=== PATIENT | female | born 1945 | race Caucasian/White ===

== ENCOUNTER 2018-08-10 14:32 | Emergency (ER) | payer MEDICARE ==
[2018-08-10] MEDS ORDERED: SODIUM CHLORIDE 0.9% 1,000 ML IV STA (14:47)
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
[2018-08-10 15:01] VITALS: TEMP 97.9
[2018-08-10 15:13] LABS: Basophils # (A) 0.1 k/uL (0-0.2); Basophils % (A) 1 %; Eosinophils # (A) 0.1 k/uL (0-0.7); Eosinophils % (A) 1 %; HGB 12.7 gm/dL (11.4-16.0); Lymphocytes # (A) 2.3 k/uL (1.0-4.8); Lymphocytes % (A) 34 %; MCHC 32.7 g/dL (31.0-37.0); Mean Platelet Volume 7.9; Monocytes # (A) 0.4 k/uL (0-1.0); Monocytes % (A) 6 %; Neutrophils # (A) 3.8 k/uL (1.3-7.7); Neutrophils % (A) 56 %; Platelet Count 235 k/uL (150-450); RDW 12.8 % (11.5-15.5); WBC 6.8 k/uL (3.8-10.6)
[2018-08-10 15:25] LABS: Albumin 3.8 g/dL (3.5-5.0); Calcium 9.7 mg/dL (8.4-10.2); Magnesium 2.3 mg/dL (1.6-2.3); Potassium 4.1 mmol/L (3.5-5.1); Total Bilirubin 0.6 mg/dL (0.2-1.3); Total Protein 6.3 g/dL (6.3-8.2)
[2018-08-10 15:32] LABS: INR 0.9 (<1.2); Prothrombin Time 10.1 sec (9.0-12.0)
[2018-08-10 15:42] LABS: Partial Thromboplastin Time 21.4 sec (22.0-30.0)
--- NOTE | 2018-08-10 15:52 | XR ---
EXAMINATION TYPE: XR chest 2V DATE OF EXAM: 08/10/2018 COMPARISON: 01/01/2014 HISTORY: 73-year-old female with chest pain TECHNIQUE: PA and lateral views FINDINGS: The cardiomediastinal silhouette, aorta, and pulmonary vasculature are within normal limits. There is hyperinflation which could relate to depth of inspiration. Lungs and pleural spaces are clear. Left anterior chest wall ICD generator with right atrial, right ventricular, and coronary sinus leads. Sub tle linear edge seen along the left apex. IMPRESSION: 1. Subtle linear edge seen at the left apex may be projectional. Consider PA expiratory view to [facility] er evaluate and exclude pneumothorax. Findings called to Dr. Sifuentes in the ER at 3:49 PM. 2. Hyperinfla tion could relate to a depth of inspiration or underlying emphysema. No acute process otherwise seen.
--- NOTE | 2018-08-10 17:47 | XR ---
EXAMINATION TYPE: XR chest 1V DATE OF EXAM: 08/10/2018 COMPARISON: Today HISTORY: Possible pneumothorax TECHNIQUE: Single frontal view of the chest is obtained. FINDINGS: Expiration view of the chest shows no sign of a pneumothorax. Lungs are clear of consolida tion. There is minimal scarring at the lung apices. There is no pleural effusion. There is no heart f ailure. IMPRESSION: No pneumothorax seen.
[2018-08-10 18:25] VITALS: BP 132/67; PULSE 63; RESP 18
== END 2018-08-10 18:33 | disposition home or self-care (01) ==
LOC: EC 14:32
DX: R55 Syncope and collapse (principal); R42 Dizziness and giddiness; M06.9 Rheumatoid arthritis, unspecified; I10 Essential (primary) hypertension; Z88.5 Allergy status to narcotic agent; Z79.899 Other long term (current) drug therapy; Z87.891 Personal history of nicotine dependence; Z96.641 Presence of right artificial hip joint; Z95.818 Presence of other cardiac implants and grafts
CPT/HCPCS: 36415; 71045; 71046; 80053; 83735; 84484; 85025; 85610; 85730; 93005; 96360; 99284

== ENCOUNTER → 2018-09-21 | Outpatient (CLI) | payer MEDICARE ==
[2018-09-21 23:36] LABS: Anion Gap 7.6 mmol/L (4.00-12.00); Calcium 9.4 mg/dL (8.7-10.3); Carbon Dioxide 28.4 mmol/L (21.6-31.8); Magnesium 2.2 mg/dL (1.5-2.4); Potassium 3.8 mmol/L (3.5-5.5)
== END | disposition home or self-care (01) ==
LOC: LABWHC1 14:30
PROVIDERS: ATTEND Internal Medicine Cardiovascular Disease
DX: I49.3 Ventricular premature depolarization (principal); I47.1 Supraventricular tachycardia
CPT/HCPCS: 36415; 80048; 83735

== ENCOUNTER → 2018-09-29 | Outpatient (CLI) | payer MEDICARE ==
--- NOTE | 2018-09-29 12:34 | BD ---
EXAMINATION TYPE: Axial Bone Density DATE OF EXAM: 09/29/2018 COMPARISON: NONE CLINICAL HISTORY: Height: 5 FT 7 IN Weight: 168 FRAX RISK QUESTIONS: Secondary Osteoporosis: Rheumatoid Arthritis: YES RISK FACTORS HISTORY OF: Surgery to Spine/Hip(right/left)/Wrist (right/left): RT HIP REPLACEMENT When: 2017 Family History of Osteoporosis: YES Active: YES Postmenopausal woman: AGE 55 Poor Health: HEART ISSUES MEDICATIONS: Additional Medications: ENTRESTO, METOPROLOL, VITAMINS, Additional History: EXAM MEASUREMENTS: Bone mineral densitometry was performed using the [employer] System. Bone mineral density as measured about the Lumbar spine is: ----- L1-L4(G/cm2): 1.101 T Score Values are as follows: ----- L2: -1.2 ----- L3: -0.3 ----- L4: -0.4 ----- L1-L4: -0.7 PREV DONE [facility] Bone mineral density about the L hip (g/cm2): 0.746 T Score values are as follows: -----L Neck: -2.1 -----L Total: -1.8 PREV DONE AT [facility] IMPRESSION: Osteopenia NOTE: T-SCORE=SD OF THE YOUNG ADULT MEAN.
== END ==
LOC: RADBDWWP 11:13
PROVIDERS: ATTEND Internal Medicine
DX: M85.80 Other specified disorders of bone density and structure, unspecified site (principal)
CPT/HCPCS: 77080

== ENCOUNTER 2020-03-23 16:24 | Observation (INO) | payer MEDICARE ==
[2020-03-23 17:24] LABS: Basophils % (A) 1 %; Eosinophils # (A) 0.1 k/uL (0-0.7); Eosinophils % (A) 1 %; HCT 41.8 % (34.0-46.0); HGB 13.5 gm/dL (11.4-16.0); Lymphocytes # (A) 1.5 k/uL (1.0-4.8); Lymphocytes % (A) 27 %; MCH 29.4 pg (25.0-35.0); MCHC 32.2 g/dL (31.0-37.0); MCV 91.3 fL (80.0-100.0); Mean Platelet Volume 7.7; Monocytes # (A) 0.4 k/uL (0-1.0); Monocytes % (A) 7 %; Neutrophils # (A) 3.4 k/uL (1.3-7.7); Neutrophils % (A) 62 %; Platelet Count 322 k/uL (150-450); RBC 4.58 m/uL (3.80-5.40); RDW 11.9 % (11.5-15.5); WBC 5.5 k/uL (3.8-10.6)
[2020-03-23 17:32] LABS: Albumin 4.2 g/dL (3.5-5.0); Calcium 9.8 mg/dL (8.4-10.2); Magnesium 2.3 mg/dL (1.6-2.3); Potassium 3.6 mmol/L (3.5-5.1); Total Bilirubin 0.5 mg/dL (0.2-1.3)
[2020-03-23 17:57] LABS: Partial Thromboplastin Time 26.1 sec (22.0-30.0); Prothrombin Time 10.6 sec (9.0-12.0)
--- NOTE | 2020-03-23 18:33 | ED ---
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 She reports that it is over her left chest wall without radiation. It is not reproducible with movement. States it started around 5 AM this morning. It has been intermittent in nature. Denies any provocative factors. Denies any associated shortness of breath. No fevers, chills or cough. Denies history of DVT or PE. Patient is on Xarelto for afib. Denies missing any medications. No lower extremity edema. Denies previous history of coronary disease. No other alleviating, precipitating or modifying factors - Related Data Home Medications Medication Instructions Recorded Confirmed Sacubitril/Valsartan [Entresto 24 1 tab PO DAILY 04/27/17 03/23/20 mg-26 mg Tablet] Rivaroxaban [Xarelto] 20 mg PO W/SUPPER 03/13/19 03/23/20 Sotalol [Betapace] 40 mg PO BID 03/13/19 03/23/20 Allergies Allergy/AdvReac Type Severity Reaction Status Date / Time codeine AdvReac Nausea & Verified 03/23/20 16:35 Vomiting Review of Systems ROS Statement: Those systems with pertinent positive or pertinent negative responses have been documented in the HPI. ROS Other: All systems not noted in ROS Statement are negative. EKG Findings - EKG Comments: EKG Findings:: EKG demonstrates a ventricularly paced rhythm with frequent AV dual case complex is. Of 67. QRS 136. QTC of 515. Pacemaker captures appropriately. No acute ST segment elevation Past Medical History Past Medical History: Blood Disorder, Hypertension, Rheumatoid Arthritis (RA) Additional Past Medical History / Comment(s): DIFF HEARING RT&LT EAR/POLYPS/ Hx. EF =40. 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 IRON DEFICIENCY ANEMIA History of Any Multi-Drug Resistant Organisms: None Reported Past Surgical History: AICD, Joint Replacement, Tonsillectomy, Tubal Ligation Additional Past Surgical History / Comment(s): L KNEE ARTHROSCOPY/COLONOSCOPY, 2017 [employer]. JANUARY 14 2017 TOTAL RT HIP REPLACEMENT Past Anesthesia/Blood Transfusion Reactions: No Reported Reaction Type of Cardiac Device: AICD Device Placement Date:: AUGUST 17 2016 Past Psychological History: No Psychological Hx Reported Smoking Status: Never smoker Past Alcohol Use History: Rare Past Drug Use History: None Reported General Exam General appearance: alert, in no apparent distress Head exam: Present: atraumatic, normocephalic, normal inspection Eye exam: Present: normal appearance, PERRL, EOMI. Absent: scleral icterus, conjunctival injection, periorbital swelling ENT exam: Present: normal exam, mucous membranes moist Neck exam: Present: normal inspection. Absent: tenderness, meningismus, lymphadenopathy Respiratory exam: Present: normal lung sounds bilaterally. Absent: respiratory distress, wheezes, rales, rhonchi, stridor Cardiovascular Exam: Present: regular rate, normal rhythm, normal heart sounds. Absent: systolic murmur, diastolic murmur, rubs, gallop, clicks GI/Abdominal exam: Present: soft, normal bowel sounds. Absent: distended, tenderness, guarding, rebound, rigid Extremities exam: Present: normal inspection, full ROM, normal capillary refill. Absent: tenderness, pedal edema, joint swelling, calf tenderness Back exam: Present: normal inspection Neurological exam: Present: alert, oriented X3, CN II-XII intact Psychiatric exam: Present: normal affect, normal mood Skin exam: Present: warm, dry, intact, normal color. Absent: rash Course Vital Signs 03/23/20 03/23/20 16:33 20:09 Temperature 97.8 F 97.9 F Pulse Rate 72 73 Respiratory 18 20 Rate Blood Pressure 157/77 158/86 O2 Sat by Pulse 98 98 Oximetry Chest Pain MDM - MDM Upon arrival patient is placed in room 6. A thorough history and physical exam was performed. Patient is hooked to continue his pulse ox and panel monitor. 12-lead EKG was performed. Laboratory studies were conducted. First troponin is negative. BNP is 883. Chest x-ray demonstrates no acute intrathoracic process. I discussed diagnosis, differential and treatment options. As the patient does have a previous cardiac history did recommend overnight observation or to trend her troponins. Patient agreed. I discussed the case with Dr. Leal except admission. Patient was transferred to the floor in stable condition Disposition Clinical Impression: Chest pain Disposition: ADMITTED IP TO THIS HOSP Condition: Stable Is patient prescribed a controlled substance at d/c from ED?: No Decision to Admit Reason: Admit from EC Decision Date: 03/23/20 Decision Time: 19:35
--- NOTE | 2020-03-23 18:36 | XR ---
EXAMINATION TYPE: XR chest 2V DATE OF EXAM: 03/23/2020 COMPARISON: 08/10/2018 HISTORY: Chest pain TECHNIQUE: FINDINGS: Heart is normal. Lungs are clear of infiltrate. There is left axillary pacemaker. There is no evidence of pleural effusion. There are no hilar masses. Bony thorax is intact. IMPRESSION: No active cardiopulmonary disease. No change.
[2020-03-23] MEDS ORDERED: NALOXONE 0.4 MG/ML 1 ML VIAL IV PRN (19:35)
[2020-03-23] MEDS ORDERED: RIVAROXABAN 20 MG TAB PO SCH (21:30)
[2020-03-23] MEDS: SOTALOL 80 MG TAB PO SCH (21:33)
[2020-03-24 04:57] VITALS: PULSE 60; RESP 16
[2020-03-24 07:50] VITALS: BP 143/68; TEMP 97.9
[2020-03-24 08:32] LABS: Basophils # (A) 0.1 k/uL (0-0.2); Basophils % (A) 1 %; Eosinophils % (A) 1 %; HCT 40.9 % (34.0-46.0); HGB 13.5 gm/dL (11.4-16.0); Lymphocytes # (A) 1.5 k/uL (1.0-4.8); Lymphocytes % (A) 29 %; MCH 30.2 pg (25.0-35.0); MCV 91.7 fL (80.0-100.0); Mean Platelet Volume 7.5; Monocytes # (A) 0.4 k/uL (0-1.0); Monocytes % (A) 9 %; Neutrophils % (A) 59 %; Platelet Count 343 k/uL (150-450); RBC 4.46 m/uL (3.80-5.40); RDW 12.3 % (11.5-15.5); WBC 5.1 k/uL (3.8-10.6)
[2020-03-24 08:39] LABS: Calcium 9.5 mg/dL (8.4-10.2)
[2020-03-24] MEDS ORDERED: SACUBITRIL/VALSARTAN 24 MG-26 MG TABLET PO SCH (09:00)
[2020-03-24] MEDS: SOTALOL 80 MG TAB PO SCH (09:25)
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
--- NOTE | 2020-03-24 09:41 | P.CRDCN ---
History of Present Illness Consult date: 03/24/20 Consult reason: chest pain Chief complaint: Chest pain History of present illness: This is a 74-year-old female with documented history of hypertension, rheumatoid arthritis, persistent atrial fibrillation, nonischemic cardiomyopathy, HOSPITAL INTERNSHIP device, who follows with a brush or broom cutter in the [place] area. No prior documented coronary artery disease. Patient presented to the hospital on this occasion with an unusual feeling underneath her left breast, she states it just felt like a smear across the lower half of her chest underneath her left breast, she denies any overt pain pressure or tightness, no associated symptoms of shortness of breath, diaphoresis, or nausea. Her chest x-ray on presentation here did not show any acute disease, EKG shows a sensed V paced rhythm. Blood pressure 130/70 with a heart rate in the 60s 98% on room air. White blood cell count 5.5, hemoglobin 13.5, platelet count 322. Sodium 139, potassium 3.6, BUN 16, creatinine 0.8. Troponin 0.0123. BNP level 883. At the time of my examination this morning, patient is currently chest pain- free. We did receive an echo from the patient's brush or broom cutter in [place] this morning, it was just done in December of this year and showed an ejection fraction of 40-45%. Past Medical History Past Medical History: Blood Disorder, Hypertension, Rheumatoid Arthritis (RA) Additional Past Medical History / Comment(s): DIFF HEARING RT&LT EAR/POLYPS/ Hx. EF =40. August 18 HOSPITAL INTERNSHIP-D defibrillator at [facility], 2015. IRON DEFICIENCY ANEMIA History of Any Multi-Drug Resistant Organisms: None Reported Past Surgical History: AICD, Joint Replacement, Tonsillectomy, Tubal Ligation Additional Past Surgical History / Comment(s): L KNEE ARTHROSCOPY/COLONOSCOPY, 2017 [employer]. JANUARY 14 2017 TOTAL RT HIP REPLACEMENT Past Anesthesia/Blood Transfusion Reactions: No Reported Reaction Type of Cardiac Device: AICD Device Placement Date:: AUGUST 17 2016 Past Psychological History: No Psychological Hx Reported Smoking Status: Never smoker Past Alcohol Use History: Rare Past Drug Use History: None Reported Medications and Allergies Home Medications Medication Instructions Recorded Confirmed Type Sacubitril/Valsartan [Entresto 24 1 tab PO DAILY 04/27/17 03/23/20 History mg-26 mg Tablet] Rivaroxaban [Xarelto] 20 mg PO W/SUPPER 03/13/19 03/23/20 History Sotalol [Betapace] 40 mg PO BID 03/13/19 03/23/20 History Allergies Allergy/AdvReac Type Severity Reaction Status Date / Time codeine AdvReac Nausea & Verified 03/23/20 16:35 Vomiting Physical Exam Vitals: Vital Signs Temp Pulse Pulse Resp BP BP Pulse Ox 03/24/20 07:48 97.9 F 60 16 143/68 97 03/24/20 04:50 97.6 F 60 16 130/74 98 03/23/20 20:25 98.2 F 68 17 165/83 96 03/23/20 20:09 97.9 F 73 20 158/86 98 03/23/20 16:33 97.8 F 72 18 157/77 98 Intake and Output 03/23/20 03/24/20 03/24/20 22:59 06:59 14:59 Other: Voiding Method Toilet Toilet Toilet # Voids 1 Weight 77.564 kg PHYSICAL EXAMINATION: GENERAL: 74-year-old female in no acute distress at the time of my examination HEENT: Head is atraumatic, normocephalic. Pupils equal, round. Sclera anicteric. Conjunctiva are clear. Mucous membranes of the mouth are moist. Neck is supple. There is no elevated jugular venous pressure. No carotid bruit is heard. HEART EXAMINATION: Or S1 and S2 irregularly irregular CHEST EXAMINATION: Lungs are clear to auscultation and precussion. No chest wall tenderness is noted on palpation or with deep breathing. ABDOMEN: Soft, nontender. Bowel sounds are heard. No organomegaly noted. EXTREMITIES: 2+ peripheral pulses with no evidence of peripheral edema and no calf tenderness noted. NEUROLOGIC patient is awake, alert and oriented 3 . Results 03/24/20 08:09 03/24/20 08:09 Cardiac Enzymes 03/23/20 03/23/20 03/23/20 Range/Units 17:11 17:11 20:49 AST 21 (14-36) U/L Troponin I <0.012 <0.012 (0.000-0.034) ng/mL 03/23/20 Range/Units 23:44 AST (14-36) U/L Troponin I <0.012 (0.000-0.034) ng/mL Coagulation 03/23/20 Range/Units 17:11 PT 10.6 (9.0-12.0) sec APTT 26.1 (22.0-30.0) sec CBC 03/23/20 03/24/20 Range/Units 17:11 08:09 WBC 5.5 5.1 (3.8-10.6) k/uL RBC 4.58 4.46 (3.80-5.40) m/uL Hgb 13.5 13.5 (11.4-16.0) gm/dL Hct 41.8 40.9 (34.0-46.0) % Plt Count 322 343 (150-450) k/uL Comprehensive Metabolic Panel 03/23/20 03/24/20 Range/Units 17:11 08:09 Sodium 139 140 (137-145) mmol/L Potassium 3.6 4.0 (3.5-5.1) mmol/L Chloride 104 104 (98-107) mmol/L Carbon Dioxide 31 H 32 H (22-30) mmol/L BUN 16 15 (7-17) mg/dL Creatinine 0.89 0.85 (0.52-1.04) mg/dL Glucose 138 H 110 H (74-99) mg/dL Calcium 9.8 9.5 (8.4-10.2) mg/dL AST 21 (14-36) U/L ALT 12 (4-34) U/L Alkaline Phosphatase 66 (38-126) U/L Total Protein 7.0 (6.3-8.2) g/dL Albumin 4.2 (3.5-5.0) g/dL Current Medications Generic Name Dose Route Start Last Admin Trade Name Freq PRN Reason Stop Dose Admin Naloxone HCl 0.2 mg 03/23/20 19:35 Naloxone 0.4 Mg/Ml 1 Ml Vial IV Q2M PRN Opioid Reversal Rivaroxaban 20 mg 03/23/20 21:30 03/23/20 21:32 Rivaroxaban 20 Mg Tab PO 20 mg W/SUPPER SHANNAN Administration Sacubitril/Valsartan 1 each 03/24/20 09:00 03/24/20 09:25 Sacubitril/Valsartan 24 Mg-26 Mg Tablet PO 1 each DAILY SHANNAN Administration Sotalol HCl 40 mg 03/23/20 21:30 03/24/20 09:25 Sotalol 80 Mg Tab PO 40 mg BID SHANNAN Administration Intake and Output 03/23/20 03/24/20 03/24/20 22:59 06:59 14:59 Other: Voiding Method Toilet Toilet Toilet # Voids 1 Weight 77.564 kg 03/24/20 08:09 03/24/20 08:09 EKG Interpretations (text) EKG shows an a sensed V paced rhythm with underlying atrial fibrillation Assessment and Plan Plan: Assessment and plan #1 atypical chest discomfort, troponins negative 3. EKG shows a sensed V paced rhythm with underlying atrial fibrillation #2 persistent atrial fibrillation on Xarelto #3 nonischemic cardiomyopathy, most recent echo was performed in December which revealed an ejection fraction of 40-45% #4 hypertension #5 rheumatoid arthritis Plan We will not repeat an echocardiogram with Doppler study as the patient recently had one performed in December, we will put a copy of that in the chart. Chest pain is very atypical in nature. Acute coronary syndrome ruled out. Patient is refusing to have any type of stress testing performed. From our perspective we will recommend her to be discharged home today and follow-up with her brush or broom cutter in [place] later this week. DNP note has been reviewed, I agree with a documented findings and plan of care. Patient was seen and examined.
== END 2020-03-24 10:38 | disposition home or self-care (01) ==
LOC: EC 16:24 → 3NCARDOBS 19:37
PROVIDERS: ADMIT Internal Medicine Geriatric Medicine; ATTEND Internal Medicine Geriatric Medicine
DX: R07.89 Other chest pain (principal); I42.8 Other cardiomyopathies; I48.19 Other persistent atrial fibrillation; I10 Essential (primary) hypertension; M06.9 Rheumatoid arthritis, unspecified; I48.91 Unspecified atrial fibrillation; H91.93 Unspecified hearing loss, bilateral; Z79.01 Long term (current) use of anticoagulants; Z79.899 Other long term (current) drug therapy; Z88.5 Allergy status to narcotic agent; Z86.2 Personal history of diseases of the blood and blood-forming organs and certain disorders involving the immune mechanism; Z87.898 Personal history of other specified conditions; Z95.810 Presence of automatic (implantable) cardiac defibrillator; Z96.641 Presence of right artificial hip joint; Z90.89 Acquired absence of other organs; Z98.890 Other specified postprocedural states; Z98.51 Tubal ligation status; Z80.0 Family history of malignant neoplasm of digestive organs; Z82.49 Family history of ischemic heart disease and other diseases of the circulatory system
CPT/HCPCS: 99285; 36415; 93005; 83880; 80053; 80048; 83690; 83735; 84484; 85025 ×2; 85610; 85730; 71046; G0378 ×2

== ENCOUNTER → 2022-01-20 | Outpatient (CLI) | payer MEDICARE ==
--- NOTE | 2022-01-20 19:17 | BD ---
EXAMINATION TYPE: Axial Bone Density DATE OF EXAM: 01/20/2022 COMPARISON: 09/29/2018 BONE DENSITY IS UNAVAILABLE CLINICAL HISTORY: 76 years year old Female. ICD-10 CODE: M89.9 DISORDER OF BONE Height: 66.2 IN Weight: 146 LBS FRAX RISK QUESTIONS: Family History (Parent hip fracture): YES MOTHER Rheumatoid Arthritis: YES RISK FACTORS HISTORY OF: Surgery to Hip(right): 2018 Family History of Osteoporosis: MOTHER Active: MODERATE Postmenopausal woman: AGE 61 MEDICATIONS: Additional Medications: VIT D, HEART MEDS, ENTRESTO, SOTALOL, XARELTO, EXAM MEASUREMENTS: Bone mineral densitometry was performed using the [employer]. Bone mineral density as measured about the Lumbar spine is: ----- L1-L4(G/cm2): 1.125 T Score Values are as follows: ----- L1: -1.2 ----- L2: -0.7 ----- L3: -0.1 ----- L4: -0.1 ----- L1-L4: -0.5 Bone mineral density STUDY OF 09/29/2018 UNAVAILABLE Bone mineral density about the L hip (g/cm2): 0.690 T Score values are as follows: -----L Neck: -2.5 -----L Total: -2.3 Bone mineral density STUDY OF 09/29/2018 UNAVAILABLE FRAX%s: The graph provided illustrates a 31.9 chance for a major osteoporotic fx and a 21.8 chance fo r the hips probability for fx in 10 years time. IMPRESSION: Osteoporosis (T Score less than -2.5). There is increased fracture risk and therapy is usually indicated based on age. Re-Screen 1-2 years. NOTE: T-SCORE=SD OF THE YOUNG ADULT MEAN.
== END | disposition home or self-care (01) ==
LOC: RADBDWWP 09:18
PROVIDERS: ATTEND Family Medicine
DX: M81.0 Age-related osteoporosis without current pathological fracture (principal)
CPT/HCPCS: 77080

== ENCOUNTER 2023-06-04 14:20 | Emergency (ER) | payer MEDICARE ==
--- NOTE | 2023-06-04 14:28 | ED ---
Female Urogenital HPI - General Chief complaint: Urogenital Stated complaint: UTI Time Seen by Provider: 06/04/23 14:25 Source: patient, RN notes reviewed, old records reviewed Mode of arrival: ambulatory Limitations: no limitations - History of Present Illness Initial comments: This is a 78-year-old female to the emergency department for evaluation. P atient states she's having burning with urination and feels a prior urinary tract infection she is without fever no significant abdominal pain or back pain. No nausea vomiting or diarrhea. No other complaints aside from dysuria MD Complaint: dysuria -: days(s) Location: perineum, suprapubic Radiation: suprapubic Severity: mild Severity scale (1-10): 2 Quality: cramping Consistency: intermittent Improves with: none Worsens with: urination Patient : No Associated Symptoms: dysuria - Related Data Home Medications Medication Instructions Recorded Confirmed Sacubitril/Valsartan [Entresto 24 2 tab PO BID 04/27/17 05/18/23 mg-26 mg Tablet] Rivaroxaban [Xarelto] 20 mg PO W/SUPPER 03/13/19 05/18/23 Sotalol [Betapace] 40 mg PO BID 03/13/19 05/18/23 Previous Rx's Medication Instructions Recorded Nitrofurantoin Monohyd/M-Cryst 100 mg PO Q12HR #14 cap 06/04/23 [Macrobid] Allergies Allergy/AdvReac Type Severity Reaction Status Date / Time codeine AdvReac Nausea & Verified 06/04/23 14:23 Vomiting Review of Systems ROS Statement: Those systems with pertinent positive or pertinent negative responses have been documented in the HPI. ROS Other: All systems not noted in ROS Statement are negative. Past Medical History Past Medical History: Blood Disorder, Hypertension, Rheumatoid Arthritis (RA) Additional Past Medical History / Comment(s): DIFF HEARING RT&LT EAR/POLYPS/ Hx. EF =40. August 18 [employer]-D defibrillator at [facility], 2015. IRON DEFICIENCY ANEMIA History of Any Multi-Drug Resistant Organisms: None Reported Past Surgical History: AICD, Joint Replacement, Pacemaker, Tonsillectomy, Tubal Ligation Additional Past Surgical History / Comment(s): L KNEE ARTHROSCOPY/COLONOSCOPY, 2017 [employer]. JANUARY 14 2017 TOTAL RT HIP REPLACEMENT Past Anesthesia/Blood Transfusion Reactions: No Reported Reaction Type of Cardiac Device: AICD Device Placement Date:: AUGUST 17 2016 Past Psychological History: No Psychological Hx Reported Smoking Status: Never smoker Past Alcohol Use History: None Reported Past Drug Use History: None Reported General Exam Limitations: no limitations General appearance: alert, in no apparent distress Head exam: Present: atraumatic, normocephalic, normal inspection Eye exam: Present: normal appearance, PERRL, EOMI. Absent: scleral icterus, conjunctival injection, periorbital swelling ENT exam: Present: normal exam, mucous membranes moist Neck exam: Present: normal inspection. Absent: tenderness, meningismus, lymphadenopathy Respiratory exam: Present: normal lung sounds bilaterally. Absent: respiratory distress, wheezes, rales, rhonchi, stridor Cardiovascular Exam: Present: regular rate, normal rhythm, normal heart sounds. Absent: systolic murmur, diastolic murmur, rubs, gallop, clicks GI/Abdominal exam: Present: soft, normal bowel sounds. Absent: distended, tenderness, guarding, rebound, rigid Extremities exam: Present: normal inspection, full ROM, normal capillary refill. Absent: tenderness, pedal edema, joint swelling, calf tenderness Back exam: Present: normal inspection Neurological exam: Present: alert, oriented X3, CN II-XII intact Psychiatric exam: Present: normal affect, normal mood Skin exam: Present: warm, dry, intact, normal color. Absent: rash Course Vital Signs 06/04/23 06/04/23 14:21 15:36 Temperature 98.4 F Pulse Rate 76 76 Respiratory 20 18 Rate Blood Pressure 166/83 154/74 O2 Sat by Pulse 96 98 Oximetry - Reevaluation(s) Reevaluation #1: Medical record is reviewed Reevaluation #2: Patient symptoms are improved Reevaluation #3: Patient informed results and questions answered Reevaluation #4: 06/04/23 15:01 Was pt. sent in by a medical professional or institution (, PA, ANCILLARY SPECIALIST, urgent care, hospital, or group home...) When possible be specific @ -no Did you speak to anyone other than the patient for history (EMS, parent, family, police, friend...)? What history was obtained from this source @ -no Did you review nursing and triage notes (agree or disagree)? Why? @ -agree Are old charts reviewed (outside hosp., previous admission, EMS record, old EKG, old radiological studies, urgent care reports/EKG's, group home records)? Report findings @ -yes Differential Diagnosis (chest pain, altered mental status, abdominal pain women, abdominal pain men, vaginal bleeding, weakness, fever, dyspnea, syncope, headache, dizziness, GI bleed, back pain, seizure, CVA, palpatations, mental health, musculoskeletal)? @ -prior EKG interpreted by me (3pts min.). @ -no X-rays interpreted by me (1pt min.). @ -no CT interpreted by me (1pt min.). @ -no U/S interpreted by me (1pt. min.). @ -no What testing was considered but not performed or refused? (CT, X-rays, U/S, labs)? Why? @ -none What meds were considered but not given or refused? Why? @ -none Did you discuss the management of the patient with other professionals (professionals i.e. , PA, ANCILLARY SPECIALIST, lab, RT, psych nurse, social sciences instructor, risk control consultant, teacher, founder and chief technical officer, case managers)? Give summary @ -no Was smoking cessation discussed for >3mins.? @ -no Was critical care preformed (if so, how long)? @ -no Were there social determinants of health that impacted care today? How? (Homelessness, low income, unemployed, alcoholism, drug addiction, transportation, low edu. Level, literacy, decrease access to med. care, nursing home, rehab)? @ -none Was there de-escalation of care discussed even if they declined (Discuss DNR or withdrawal of care, Hospice)? DNR status @ -no What co-morbidities impacted this encounter? (DM, HTN, Smoking, COPD, CAD, Cancer, CVA, ARF, Chemo, Hep., AIDS, mental health diagnosis, sleep apnea, morbid obesity)? @ -none Was patient admitted / discharged? Hospital course, mention meds given and route, prescriptions, significant lab abnormalities, going to OR and other pertinent info. @ - 78 female to the emergency department for evaluation of urinary tract infection patient states symptoms are significantly similar to prior urinary tract infections and she would like discharge home, patient given antibiotics Admitted Undiagnosed new problem with uncertain prognosis? @ -no Drug Therapy requiring intensive monitoring for toxicity (Heparin, Nitro, Insulin, Cardizem)? @ -no Were any procedures done? @ -no Diagnosis/symptom? @ -Urinary tract infection Acute, or Chronic, or Acute on Chronic? @ -Acute Uncomplicated (without systemic symptoms) or Complicated (systemic symptoms)? @ -Complicated Side effects of treatment? @ -no Exacerbation, Progression, or Severe Exacerbation? @ -exacerbation Poses a threat to life or bodily function? How? (Chest pain, [place], [place], pneumonia, PE, COPD, DKA, ARF, appy, cholecystitis, CVA, Diverticulitis, Homicidal, Suicidal, threat to staff... and all critical care pts) @ -no Reevaluation #5: Differential Abdominal Pain Women: Appendicitis, Cholecystitis, diverticulosis, ischemic bowel, pancreatitis, hepatitis, UTI, gastroenteritis, AAA, incarcerated hernia, bowel obstruction, constipation, inflammatory bowel, hepatitis, peptic ulcer disease, splenic infarction, perforated viscus, vulvitis, ovarian torsion, PID, kidney stone, placenta abruption, this is not meant to be an all-inclusive list Medical Decision Making - Medical Decision Making 78 female to the emergency department for evaluation of urinary tract infection patient states symptoms are significantly similar to prior urinary tract infections and she would like discharge home, patient given antibiotics - Lab Data Lab Results 06/04/23 Range/Units 14:37 Urine Color Colorless Urine Appearance Cloudy H (Clear) Urine pH 7.5 (5.0-8.0) Ur Specific Longs 1.014 (1.001-1.035) Urine Protein Negative (Negative) Urine Glucose (UA) Negative (Negative) Urine Ketones Negative (Negative) Urine Blood Trace H (Negative) Urine Nitrite Negative (Negative) Urine Bilirubin Negative (Negative) Urine Urobilinogen <2.0 (<2.0) mg/dL Ur Leukocyte Esterase Large H (Negative) Urine RBC 7 H (0-5) /hpf Urine WBC 90 H (0-5) /hpf Ur Squamous Epith Cells <1 (0-4) /hpf Urine Mucus Rare H (None) /hpf - EKG Data -: EKG Interpreted by Me (EKG is A. fib 62 QRS 129 QTC 436) Disposition Clinical Impression: Urinary tract infection Disposition: HOME SELF-CARE Condition: Good Instructions (If sedation given, give patient instructions): Urinary Tract Infection in Women (ED) Prescriptions: Nitrofurantoin Monohyd/M-Cryst [Macrobid] 100 mg PO Q12HR #14 cap Is patient prescribed a controlled substance at d/c from ED?: No Referrals: Cora Orourke MD [Primary Care Provider] - 1-2 days Time of Disposition: 15:30
[2023-06-04 14:59] VITALS: PULSE 76; TEMP 98.4
[2023-06-04 15:17] LABS: Appearance,Urine Cloudy (Clear); Bilirubin,Urine Negative (Negative); Blood,Urine Trace (Negative); Color,Urine Colorless; Glucose,Urine (UA) Negative (Negative); Ketones,Urine Negative (Negative); Leukocyte Esterase,Urine Large (Negative); Mucus,Urine Rare /hpf; Nitrite,Urine Negative (Negative); PH, Urine 7.5 (5.0-8.0); Protein,Urine Negative (Negative); RBC,Urine 7 /hpf (0-5); Specific Gravity,Urine 1.014 (1.001-1.035); Squamous Epithelial Cell,Urine <1 /hpf (0-4); Urobilinogen,Urine <2.0 mg/dL (<2.0); WBC,Urine 90 /hpf (0-5)
[2023-06-04] MEDS ORDERED: NITROFURANTOIN MONOHYD/M-CRYST 100 MG CAP PO STA (15:26)
[2023-06-04 15:44] VITALS: BP 154/74; RESP 18
== END 2023-06-04 15:37 | disposition home or self-care (01) ==
LOC: EC 14:20
DX: N39.0 Urinary tract infection, site not specified (principal); I50.9 Heart failure, unspecified; I11.0 Hypertensive heart disease with heart failure; I48.91 Unspecified atrial fibrillation; Z88.5 Allergy status to narcotic agent; Z79.01 Long term (current) use of anticoagulants; Z79.899 Other long term (current) drug therapy; Z95.810 Presence of automatic (implantable) cardiac defibrillator
CPT/HCPCS: 81001; 99284

== ENCOUNTER 2024-05-09 12:11 | Inpatient (IN) | payer MEDICARE ==
--- NOTE | 2024-05-09 13:19 | ED ---
Altered Mental Status HPI - General Chief Complaint: Altered Mental Status Stated Complaint: Cardiac issues, possible stroke Time Seen by Provider: 05/09/24 12:28 Source: patient, family Mode of arrival: ambulatory Limitations: altered mental status - History of Present Illness Initial Comments: 78-year-old female with past medical history of rheumatoid arthritis who presents to the emergency department with altered mental status. She is brought in by her under the direction of their daughter who is a doctor. Patient woke up this morning with confusion. Patient is oriented to self, place and time however her speech at most is nonsensical. Patient is having circular responses to questions that do not make sense. Daughter states that this has happened previously to her in the past upon waking up however her symptoms are usually short-lived. This is the worst episode the patient has ever had with her confusion and has lasted the longest. There is no lateralizing weakness. No head injury. Patient does take Xarelto. Patient denies any visual changes. Chest pain or difficulty breathing. No fevers. No other alleviating, precipitating or modifying factors - Related Data Home Medications Medication Instructions Recorded Confirmed Sacubitril/Valsartan [Entresto 24 1 tab PO BID 04/27/17 05/09/24 mg-26 mg Tablet] Rivaroxaban [Xarelto] 20 mg PO W/SUPPER 03/13/19 05/09/24 Sotalol [Betapace] 40 mg PO BID 03/13/19 05/09/24 clonazePAM [KlonoPIN] 0.25 mg PO HS PRN 05/09/24 05/09/24 Allergies Allergy/AdvReac Type Severity Reaction Status Date / Time codeine AdvReac Nausea & Verified 05/09/24 15:11 Vomiting Review of Systems ROS Statement: Those systems with pertinent positive or pertinent negative responses have been documented in the HPI. ROS Other: All systems not noted in ROS Statement are negative. Past Medical History Past Medical History: Blood Disorder, Hypertension, Rheumatoid Arthritis (RA) Additional Past Medical History / Comment(s): DIFF HEARING RT&LT EAR/POLYPS/ Hx. EF =40. August 18 [employer]-D defibrillator at [facility]2015. IRON DEFICIENCY ANEMIA History of Any Multi-Drug Resistant Organisms: None Reported Past Surgical History: AICD, Joint Replacement, Pacemaker, Tonsillectomy, Tubal Ligation Additional Past Surgical History / Comment(s): L KNEE ARTHROSCOPY/COLONOSCOPY, 2017 [place]. JANUARY 14 2017 TOTAL RT HIP REPLACEMENT Past Anesthesia/Blood Transfusion Reactions: No Reported Reaction Type of Cardiac Device: AICD Device Placement Date:: AUGUST 17 2016 Past Psychological History: No Psychological Hx Reported Smoking Status: Never smoker General Exam Limitations: altered mental status Course Vital Signs 05/09/24 12:22 Temperature 97.3 F L Pulse Rate 64 Respiratory 18 Rate Blood Pressure 160/68 O2 Sat by Pulse 98 Oximetry Medical Decision Making - Medical Decision Making Was pt. sent in by a medical professional or institution (, RAMANDEEP, INSPECTOR [employer], urgent care, hospital, or correction...) When possible be specific @ -[No] Did you speak to anyone other than the patient for history (EMS, parent, family, police, friend...)? What history was obtained from this source @ -[No] Did you review nursing and triage notes (agree or disagree)? Why? @ -[I reviewed and agree with nursing and triage notes] Were old charts reviewed (outside hosp., previous admission, EMS record, old EKG, old radiological studies, urgent care reports/EKG's, correction records)? Report findings @ -[No old charts were reviewed] Differential Diagnosis (chest pain, altered mental status, abdominal pain women, abdominal pain men, vaginal bleeding, weakness, fever, dyspnea, syncope, headache, dizziness, GI bleed, back pain, seizure, CVA, palpatations, mental health, musculoskeletal)? @ -[not applicable] EKG interpreted by me (3pts min.). @ -Yes and demonstrates an AV paced rhythm. Captures appropriately. No acute ST segment elevation or depression X-rays interpreted by me (1pt min.). @ -[None done] CT interpreted by me (1pt min.). @ -[None done] U/S interpreted by me (1pt. min.). @ -[None done] What testing was considered but not performed or refused? (CT, X-rays, U/S, labs)? Why? @ -[None] What meds were considered but not given or refused? Why? @ -[None] Did you discuss the management of the patient with other professionals (professionals i.e. , RAMANDEEP, INSPECTOR [employer], lab, RT, psych nurse, adoption social worker, potato chip maker, teacher, postal sorting officer, casework manager)? Give summary @ -[No] Was smoking cessation discussed for >3mins.? @ -[No] Was critical care preformed (if so, how long)? @ -[No] Were there social determinants of health that impacted care today? How? (Homelessness, low income, unemployed, alcoholism, drug addiction, transportation, low edu. Level, literacy, decrease access to med. care, usp, rehab)? @ -[No] Was there de-escalation of care discussed even if they declined (Discuss DNR or withdrawal of care, Hospice)? DNR status @ -[No] What co-morbidities impacted this encounter? (DM, HTN, Smoking, COPD, CAD, Cancer, CVA, ARF, Chemo, Hep., AIDS, mental health diagnosis, sleep apnea, morbid obesity)? @ -[None] Was patient admitted / discharged? Hospital course, mention meds given and route, prescriptions, significant lab abnormalities, going to OR and other perti nent info. @ -[hospital course] Undiagnosed new problem with uncertain prognosis? @ -[No] Drug Therapy requiring intensive monitoring for toxicity (Heparin, Nitro, Insulin, Cardizem)? @ -[No] Were any procedures done? @ -[No] Diagnosis/symptom? @ -[default] Acute, or Chronic, or Acute on Chronic? @ -[default] Uncomplicated (without systemic symptoms) or Complicated (systemic symptoms)? @ -[default] Side effects of treatment? @ -[No] Exacerbation, Progression, or Severe Exacerbation? @ -[No] Poses a threat to life or bodily function? How? (Chest pain, USA, ID, pneumonia, PE, COPD, DKA, ARF, appy, cholecystitis, CVA, Diverticulitis, Homicidal, Suicidal, threat to staff... and all critical care pts) @ -[No] - Lab Data Result diagrams: 05/09/24 13:20 05/09/24 13:20 Lab Results 05/09/24 05/09/24 05/09/24 Range/Units 13:20 13:20 13:20 WBC 6.5 (3.8-10.6) k/uL RBC 4.07 (3.80-5.40) m/uL Hgb 12.7 (11.4-16.0) gm/dL Hct 38.2 (34.0-46.0) % MCV 93.8 (80.0-100.0) fL MCH 31.1 (25.0-35.0) pg MCHC 33.1 (31.0-37.0) g/dL RDW 12.6 (11.5-15.5) % Plt Count 234 (150-450) k/uL MPV 8.5 Neutrophils % 69 % Lymphocytes % 23 % Monocytes % 6 % Eosinophils % 0 % Basophils % 1 % Neutrophils # 4.5 (1.3-7.7) k/uL Lymphocytes # 1.5 (1.0-4.8) k/uL Monocytes # 0.4 (0-1.0) k/uL Eosinophils # 0.0 (0-0.7) k/uL Basophils # 0.0 (0-0.2) k/uL PT 11.3 (10.0-12.5) sec INR 1.0 (<1.2) APTT 25.9 (22.0-30.0) sec Sodium 139 (137-145) mmol/L Potassium 3.8 (3.5-5.1) mmol/L Chloride 103 (98-107) mmol/L Carbon Dioxide 31 H (22-30) mmol/L Anion Gap 5 mmol/L BUN 17 (7-17) mg/dL Creatinine 0.80 (0.52-1.04) mg/dL Est GFR (CKD-EPI)AfAm 82 (>60 ml/min/1.73 sqM) Est GFR (CKD-EPI)NonAf 72 (>60 ml/min/1.73 sqM) Glucose 116 H (74-99) mg/dL Calcium 9.1 (8.4-10.2) mg/dL Total Bilirubin 0.9 (0.2-1.3) mg/dL AST 23 (14-36) U/L ALT 16 (4-34) U/L Alkaline Phosphatase 44 (38-126) U/L Ammonia (<30) umol/L Troponin I (0.000-0.034) ng/mL Total Protein 6.3 (6.3-8.2) g/dL Albumin 3.9 (3.5-5.0) g/dL TSH 2.010 (0.465-4.680) mIU/L Urine Color Urine Appearance (Clear) Urine pH (5.0-8.0) Ur Specific Kinsey (1.001-1.035) Urine Protein (Negative) Urine Glucose (UA) (Negative) Urine Ketones (Negative) Urine Blood (Negative) Urine Nitrite (Negative) Urine Bilirubin (Negative) Urine Urobilinogen (<2.0) mg/dL Ur Leukocyte Esterase (Negative) Urine Opiates Screen (NotDetected) Ur Oxycodone Screen (NotDetected) Urine Methadone Screen (NotDetected) Ur Barbiturates Screen (NotDetected) U Tricyclic Antidepress (NotDetected) Ur Phencyclidine Scrn (NotDetected) Ur Amphetamines Screen (NotDetected) U Methamphetamines Scrn (NotDetected) U Benzodiazepines Scrn (NotDetected) Urine Cocaine Screen (NotDetected) U Marijuana (THC) Screen (NotDetected) Serum Alcohol <10 mg/dL 05/09/24 05/09/24 05/09/24 Range/Units 13:20 13:20 13:47 WBC (3.8-10.6) k/uL RBC (3.80-5.40) m/uL Hgb (11.4-16.0) gm/dL Hct (34.0-46.0) % MCV (80.0-100.0) fL MCH (25.0-35.0) pg MCHC (31.0-37.0) g/dL RDW (11.5-15.5) % Plt Count (150-450) k/uL MPV Neutrophils % % Lymphocytes % % Monocytes % % Eosinophils % % Basophils % % Neutrophils # (1.3-7.7) k/uL Lymphocytes # (1.0-4.8) k/uL Monocytes # (0-1.0) k/uL Eosinophils # (0-0.7) k/uL Basophils # (0-0.2) k/uL PT (10.0-12.5) sec INR (<1.2) APTT (22.0-30.0) sec Sodium (137-145) mmol/L Potassium (3.5-5.1) mmol/L Chloride (98-107) mmol/L Carbon Dioxide (22-30) mmol/L Anion Gap mmol/L BUN (7-17) mg/dL Creatinine (0.52-1.04) mg/dL Est GFR (CKD-EPI)AfAm (>60 ml/min/1.73 sqM) Est GFR (CKD-EPI)NonAf (>60 ml/min/1.73 sqM) Glucose (74-99) mg/dL Calcium (8.4-10.2) mg/dL Total Bilirubin (0.2-1.3) mg/dL AST (14-36) U/L ALT (4-34) U/L Alkaline Phosphatase (38-126) U/L Ammonia <9 (<30) umol/L Troponin I <0.012 (0.000-0.034) ng/mL Total Protein (6.3-8.2) g/dL Albumin (3.5-5.0) g/dL TSH (0.465-4.680) mIU/L Urine Color Urine Appearance (Clear) Urine pH (5.0-8.0) Ur Specific Kinsey (1.001-1.035) Urine Protein (Negative) Urine Glucose (UA) (Negative) Urine Ketones (Negative) Urine Blood (Negative) Urine Nitrite (Negative) Urine Bilirubin (Negative) Urine Urobilinogen (<2.0) mg/dL Ur Leukocyte Esterase (Negative) Urine Opiates Screen Not Detected (NotDetected) Ur Oxycodone Screen Not Detected (NotDetected) Urine Methadone Screen Not Detected (NotDetected) Ur Barbiturates Screen Not Detected (NotDetected) U Tricyclic Antidepress Not Detected (NotDetected) Ur Phencyclidine Scrn Not Detected (NotDetected) Ur Amphetamines Screen Not Detected (NotDetected) U Methamphetamines Scrn Not Detected (NotDetected) U Benzodiazepines Scrn Not Detected (NotDetected) Urine Cocaine Screen Not Detected (NotDetected) U Marijuana (THC) Screen Not Detected (NotDetected) Serum Alcohol mg/dL 05/09/24 Range/Units 13:47 WBC (3.8-10.6) k/uL RBC (3.80-5.40) m/uL Hgb (11.4-16.0) gm/dL Hct (34.0-46.0) % MCV (80.0-100.0) fL MCH (25.0-35.0) pg MCHC (31.0-37.0) g/dL RDW (11.5-15.5) % Plt Count (150-450) k/uL MPV Neutrophils % % Lymphocytes % % Monocytes % % Eosinophils % % Basophils % % Neutrophils # (1.3-7.7) k/uL Lymphocytes # (1.0-4.8) k/uL Monocytes # (0-1.0) k/uL Eosinophils # (0-0.7) k/uL Basophils # (0-0.2) k/uL PT (10.0-12.5) sec INR (<1.2) APTT (22.0-30.0) sec Sodium (137-145) mmol/L Potassium (3.5-5.1) mmol/L Chloride (98-107) mmol/L Carbon Dioxide (22-30) mmol/L Anion Gap mmol/L BUN (7-17) mg/dL Creatinine (0.52-1.04) mg/dL Est GFR (CKD-EPI)AfAm (>60 ml/min/1.73 sqM) Est GFR (CKD-EPI)NonAf (>60 ml/min/1.73 sqM) Glucose (74-99) mg/dL Calcium (8.4-10.2) mg/dL Total Bilirubin (0.2-1.3) mg/dL AST (14-36) U/L ALT (4-34) U/L Alkaline Phosphatase (38-126) U/L Ammonia (<30) umol/L Troponin I (0.000-0.034) ng/mL Total Protein (6.3-8.2) g/dL Albumin (3.5-5.0) g/dL TSH (0.465-4.680) mIU/L Urine Color Colorless Urine Appearance Clear (Clear) Urine pH 7.0 (5.0-8.0) Ur Specific Kinsey 1.008 (1.001-1.035) Urine Protein Negative (Negative) Urine Glucose (UA) Negative (Negative) Urine Ketones Negative (Negative) Urine Blood Negative (Negative) Urine Nitrite Negative (Negative) Urine Bilirubin Negative (Negative) Urine Urobilinogen <2.0 (<2.0) mg/dL Ur Leukocyte Esterase Negative (Negative) Urine Opiates Screen (NotDetected) Ur Oxycodone Screen (NotDetected) Urine Methadone Screen (NotDetected) Ur Barbiturates Screen (NotDetected) U Tricyclic Antidepress (NotDetected) Ur Phencyclidine Scrn (NotDetected) Ur Amphetamines Screen (NotDetected) U Methamphetamines Scrn (NotDetected) U Benzodiazepines Scrn (NotDetected) Urine Cocaine Screen (NotDetected) U Marijuana (THC) Screen (NotDetected) Serum Alcohol mg/dL Disposition Clinical Impression: Acute encephalopathy Disposition: ADMITTED IP TO THIS [facility] Condition: Stable Is patient prescribed a controlled substance at d/c from ED?: No Referrals: Cora Orourke MD [Primary Care Provider] - 1-2 days Time of Disposition: 15:19 Decision to Admit Reason: Admit from EC Decision Date: 05/09/24 Decision Time: 15:19
[2024-05-09 13:34] LABS: Basophils % (A) 1 %; Eosinophils % (A) 0 %; HCT 38.2 % (34.0-46.0); HGB 12.7 gm/dL (11.4-16.0); Lymphocytes # (A) 1.5 k/uL (1.0-4.8); Lymphocytes % (A) 23 %; MCH 31.1 pg (25.0-35.0); MCHC 33.1 g/dL (31.0-37.0); MCV 93.8 fL (80.0-100.0); Mean Platelet Volume 8.5; Monocytes # (A) 0.4 k/uL (0-1.0); Monocytes % (A) 6 %; Neutrophils # (A) 4.5 k/uL (1.3-7.7); Neutrophils % (A) 69 %; Platelet Count 234 k/uL (150-450); RBC 4.07 m/uL (3.80-5.40); RDW 12.6 % (11.5-15.5); WBC 6.5 k/uL (3.8-10.6)
[2024-05-09 13:45] LABS: ALT 16 U/L (4-34); AST 23 U/L (14-36); African American GFR (CKD) 82 (>60 ml/min/1.73 sqM); Albumin 3.9 g/dL (3.5-5.0); Alcohol <10 mg/dL; Alkaline Phosphatase 44 U/L (38-126); Anion Gap 5 mmol/L; Blood Urea Nitrogen 17 mg/dL (7-17); Calcium 9.1 mg/dL (8.4-10.2); Carbon Dioxide 31 mmol/L (22-30); Chloride 103 mmol/L (98-107); Glucose 116 mg/dL (74-99); Non-African American GFR(CKD) 72 (>60 ml/min/1.73 sqM); Potassium 3.8 mmol/L (3.5-5.1); Sodium 139 mmol/L (137-145); Total Bilirubin 0.9 mg/dL (0.2-1.3); Total Protein 6.3 g/dL (6.3-8.2)
[2024-05-09 13:54] LABS: Appearance,Urine Clear (Clear); Bilirubin,Urine Negative (Negative); Blood,Urine Negative (Negative); Color,Urine Colorless; Glucose,Urine (UA) Negative (Negative); Ketones,Urine Negative (Negative); Leukocyte Esterase,Urine Negative (Negative); Nitrite,Urine Negative (Negative); Protein,Urine Negative (Negative); Specific Gravity,Urine 1.008 (1.001-1.035); Urobilinogen,Urine <2.0 mg/dL (<2.0)
[2024-05-09 13:59] LABS: Partial Thromboplastin Time 25.9 sec (22.0-30.0); Prothrombin Time 11.3 sec (10.0-12.5)
[2024-05-09 14:05] LABS: Amphetamine Screen,Urine Not Detected (NotDetected); Barbiturate Screen,Urine Not Detected (NotDetected); Benzodiazepines Screen,Urine Not Detected (NotDetected); Cocaine Screen,Urine Not Detected (NotDetected); Methadone Screen, Urine Not Detected (NotDetected); Opiate Screen,Urine Not Detected (NotDetected); Oxycodone Screen, Urine Not Detected (NotDetected); Phencyclidine Screen,Urine Not Detected (NotDetected); Tricyclic Antidepressant,Urine Not Detected (NotDetected); Urn Cannabinoid Scrn Not Detected (NotDetected)
--- NOTE | 2024-05-09 14:33 | CT ---
EXAMINATION TYPE: CT brain wo con CT DLP: 1068.8 mGycm, Automated exposure control for dose reduction was used. DATE OF EXAM: 05/09/2024 2:24 PM COMPARISON: None. CLINICAL INDICATION:Female, 78 years old with history of ams, ams TECHNIQUE: Brain: Multiple axial CT images of the brain were obtained without IV contrast. . Coronal and sagitta l reformats reviewed. FINDINGS: Brain: Extra-axial spaces: No abnormal extra-axial fluid collections. Ventricular system: Within normal limits Cerebral parenchyma: No acute intraparenchymal hemorrhage or mass effect. The castro-white junction is well differentiated. Scattered hypoattenuating areas are seen within the periventricular white matte r. Nonspecific left basal ganglia calcifications. Cerebellum: Unremarkable. Mass effect: No evidence of midline shift. Intracranial vasculature: unremarkable Soft tissues: Normal. Calvarium/osseous structures: No depressed skull fracture. Benign hyperostosis frontalis noted. Paranasal sinuses and mastoid air cells: Clear Visualized orbits: Orbital contents are intact. IMPRESSION: 1. No acute intracranial process. 2. Nonspecific white matter changes, likely secondary to chronic small vessel ischemic disease. [facility], , 05/09/2024 2:30 PM
--- NOTE | 2024-05-09 15:07 | CT ---
EXAMINATION TYPE: CT angio head neck CT DLP: 334.5 mGycm, Automated exposure control for dose reduction was used. DATE OF EXAM: 05/09/2024 2:45 PM COMPARISON: CT brain the same date. CLINICAL INDICATION:Female, 78 years old with history of ams; PHH, ams TECHNIQUE: Axially acquired helical CT angiogram of the head and neck was obtained with contrast util izing 75 cc of Isovue-370 administered intravenously. Axial images are supplemented with 3D reconstru ctions which were post-processed at an independent workstation. NASCET criteria used. FINDINGS: CTA HEAD: No evidence of acute intracranial hemorrhage, mass effect, or midline shift. The ventricles, sulci, a nd cisterns are unremarkable. The visualized portions of the internal carotid arteries, middle cerebral arteries, anterior cerebral arteries, and posterior cerebral arteries are patent. The origin left ASSISTANT DIRECTOR OF SECURITY. The basilar and vertebral arteries are patent. Diminutive appearance of the V4 segment of the left ve rtebral artery. CTA NECK: Right Carotid System: The common carotid artery and external carotid artery are patent. The carotid bifurcation demonstrate s no evidence of hemodynamically significant stenosis. The remaining portions of the internal carotid artery demonstrate normal size without significant narrowing. Left Carotid System: The common carotid artery and external carotid artery are patent. Mild atherosclerotic calcification at the bifurcation. The carotid bifurcation demonstrates no evidence of hemodynamically significant s tenosis. The remaining portions of the internal carotid artery demonstrate normal size without signif icant narrowing. Vertebral arteries are patent without evidence hemodynamically significant stenosis. Right vertebral artery is dominant. There is a 4 vessel aortic arch. Mild atherosclerotic calcification of the aortic arch and branches. The origins of the great vessels are patent. No evidence of hemodynamically significant stenosis. Biapical pleural parenchymal scarring. Left chest wall cardiac pacemaking device with 3 leads. Multil evel degenerative changes of the cervical spine. Atrophy of the right parotid gland. IMPRESSION: 1. No evidence of dissection of the cervical internal carotid arteries or vertebral arteries or any e vidence of significant stenosis at the carotid bifurcations. 2. No evidence of high-grade stenosis or intracranial aneurysm. [facility], , 05/09/2024 3:04 PM
[2024-05-09] MEDS ORDERED: NALOXONE 0.4 MG/ML 1 ML VIAL IV PRN (15:19)
[2024-05-09] MEDS ORDERED: clonazePAM 0.5 MG TAB PO PRN (15:24)
--- NOTE | 2024-05-09 15:37 | XR ---
EXAMINATION TYPE: XR chest 2V DATE OF EXAM: 05/09/2024 2:39 PM COMPARISON: Chest radiographs from03/23/2020 CLINICAL INDICATION: Female, 78 years old with history of altered mental status; [facility] TECHNIQUE: XR chest 2V Frontal and lateral views of the chest. FINDINGS: Lungs/Pleura: There is no evidence of pleural effusion, focal consolidation, or pneumothorax. Pulmonary vascularity: Unremarkable. Heart/mediastinum: Cardiomediastinal silhouette is unremarkable. Three lead cardiac conduction device overlying the left hemithorax with lead tips projecting over the right ventricle, right atrium and c oronary sinus. Musculoskeletal: No acute osseous pathology. IMPRESSION: No acute cardiopulmonary disease/process. [facility], , 05/09/2024 3:35 PM
[2024-05-09] MEDS: RIVAROXABAN 20 MG TAB PO SCH (17:23)
[2024-05-09] MEDS: SACUBITRIL/VALSARTAN 24 MG-26 MG TABLET PO SCH (20:04)
[2024-05-09] MEDS: SOTALOL 80 MG TAB PO SCH (20:04)
[2024-05-10 09:29] VITALS: TEMP 97.8
[2024-05-10 09:43] LABS: African American GFR (CKD) 67 (>60 ml/min/1.73 sqM); Anion Gap 1 mmol/L; Blood Urea Nitrogen 16 mg/dL (7-17); Carbon Dioxide 33 mmol/L (22-30); Chloride 104 mmol/L (98-107); Glucose 98 mg/dL (74-99); Non-African American GFR(CKD) 58 (>60 ml/min/1.73 sqM); Potassium 3.5 mmol/L (3.5-5.1); Sodium 138 mmol/L (137-145)
--- NOTE | 2024-05-10 14:11 | P.HPIM ---
History of Present Illness H&P Date: 05/10/24 This is a pleasant 78-year-old female with medical history significant for A- fib, heart failure, AICD. Patient came in with worsening confusion yesterday although per family patient has been having intermittent episodes confusion over the last few months seems to be worse in the morning. She is not having any focal weakness and at the time of my evaluation is currently alert and oriented x 3. Patient is a poor historian and most of the medical history is taken from patient's daughter Betsy over the phone. Patient was supposed to get remzia infusion yesterday called and cancelled the appointment in the morning during a bout of confusion. Was evaluated done at [facility] last week secondary to a beeping noise heard coming from her chest wall patient was found to need a generator change in her AICD and has been preoccupied with this since and worried that she will end up dying. She is post to make an appoint with her television journalist to have this changed. Patient has been established with neurologist Dr. Demond Chambers 3 weeks ago to work up for possible underlying dementia. Was diagnosed with a possible REM sleep Cycle disorder was to be taking Klonopin at at bedtime per family and patient she has not been taking it as prescribed. She has not been sleeping well and waking up with confusion in the morning. Patient was evaluated by neurology this admission brain CT and CT angiography showed no acute changes. Chest x-ray is unremarkable. Blood work is essentially unremarkable as well. Drug toxicology is negative urinalysis is negative electrolytes are within normal limits. Neurology has recommended EEG and if clear patient will be discharged home to follow-up with her neurologist on an outpatient basis. Plan was discussed with her family and they are agreei ng to this. REVIEW OF SYSTEMS: CONSTITUTIONAL: No fever, no malaise, no fatigue. HEENT: No recent visual problems or hearing problems. Denied any sore throat. CARDIOVASCULAR: No chest pain, orthopnea, PND, no palpitations, no syncope. PULMONARY: No shortness of breath, no cough, no hemoptysis. GASTROINTESTINAL: No diarrhea, no nausea, no vomiting, no abdominal pain. NEUROLOGICAL: No headaches, no weakness, no numbness. HEMATOLOGICAL: Denies any bleeding or petechiae. GENITOURINARY: Denies any burning micturition, frequency, or urgency. MUSCULOSKELETAL/RHEUMATOLOGICAL: Denies any joint pain, swelling, or any muscle pain. ENDOCRINE: Denies any polyuria or polydipsia. The rest of the 14-point review of systems is negative. PHYSICAL EXAMINATION: GENERAL: The patient is alert and oriented x3, not in any acute distress. Well developed, well nourished. HEENT: Pupils are round and equally reacting to light. EOMI. No scleral icterus. No conjunctival pallor. Normocephalic, atraumatic. No pharyngeal erythema. No thyromegaly. CARDIOVASCULAR: S1 and S2 present. No murmurs, rubs, or gallops. PULMONARY: Chest is clear to auscultation, no wheezing or crackles. ABDOMEN: Soft, nontender, nondistended, normoactive bowel sounds. No palpable organomegaly. MUSCULOSKELETAL: No joint swelling or deformity. EXTREMITIES: No cyanosis, clubbing, or pedal edema. NEUROLOGICAL: Gross neurological examination did not reveal any focal deficits. SKIN: No rashes. Assessment and plan -Confusion likely related to underlying dementia versus REM sleep cycle disorder patient has recently established with a neurologist on an outpatient basis and will be establishing with a neuropsychiatrist. -History of atrial fibrillation, paroxysmal anticoaguklated with Eliquis heart rate is controlled -History of systolic heart failure chronic with no acute exacerbation -AICD and history of nonischemic cardiomyopathy with improved EF now 50% per family. -Hypertension -Rheumatoid Arthritis GI prophylaxis Full Code Plan Resume all home medications Appreciate neurology consultation Pending EEG Discharge home later today Follow up with neurologist on discharge. The impression and plan of care has been dictated by Trinh Bates, Nurse Practitioner as directed. Dr. Kiesha MD I have performed a history and physical examination and medical decision making of this patient, discussed the same with the dictator, and agree with the dictators assessment and plan as written, documented as a scribe. Based on total visit time, I have performed more than 50% of this visit. Past Medical History Past Medical History: Blood Disorder, Hypertension, Rheumatoid Arthritis (RA) Additional Past Medical History / Comment(s): DIFF HEARING RT&LT EAR/POLYPS/ Hx. EF =40. August 18 HEAD OF ICT-D defibrillator at [facility]2015. IRON DEFICIENCY ANEMIA History of Any Multi-Drug Resistant Organisms: None Reported Past Surgical History: AICD, Joint Replacement, Pacemaker, Tonsillectomy, Tubal Ligation Additional Past Surgical History / Comment(s): L KNEE ARTHROSCOPY/COLONOSCOPY, 2017 [employer]. JANUARY 14 2017 TOTAL RT HIP REPLACEMENT Past Anesthesia/Blood Transfusion Reactions: No Reported Reaction Type of Cardiac Device: AICD Device Placement Date:: AUGUST 17 2016 Past Psychological History: No Psychological Hx Reported Smoking Status: Never smoker Medications and Allergies Home Medications Medication Instructions Recorded Confirmed Type Sacubitril/Valsartan [Entresto 24 1 tab PO BID 04/27/17 05/09/24 History mg-26 mg Tablet] Rivaroxaban [Xarelto] 20 mg PO W/SUPPER 03/13/19 05/09/24 History Sotalol [Betapace] 40 mg PO BID 03/13/19 05/09/24 History clonazePAM [KlonoPIN] 0.25 mg PO HS PRN 05/09/24 05/09/24 History Allergies Allergy/AdvReac Type Severity Reaction Status Date / Time codeine AdvReac Nausea & Verified 05/09/24 15:11 Vomiting Physical Exam Vitals: Vital Signs Temp Pulse Resp BP Pulse Ox 05/10/24 11:30 61 16 05/10/24 09:25 97.8 F 60 17 122/66 05/10/24 06:00 66 17 115/62 05/10/24 02:00 60 17 112/51 05/09/24 22:00 60 17 135/72 05/09/24 18:00 60 20 139/68 96 05/09/24 17:17 62 22 152/79 96 05/09/24 12:22 97.3 F L 64 18 160/68 98 Results CBC & Chem 7: 05/09/24 13:20 05/10/24 08:28 Labs: Abnormal Lab Results - Last 24 Hours (Table) 05/09/24 05/10/24 Range/Units 13:20 08:28 Carbon Dioxide 31 H 33 H (22-30) mmol/L Glucose 116 H (74-99) mg/dL Assessment and Plan Time with Patient: Greater than 30
[2024-05-10 15:13] VITALS: BP 142/60; PULSE 63; RESP 18
--- NOTE | 2024-05-10 15:42 | P.CNNES ---
History of Present Illness Consult date: 05/10/24 Requesting physician: Adrienne Bhatti Reason for Consult: acute encephalopathy History of Present Illness: This is a 78-year-old woman who presented emergency department because of altered mental status. History is obtained from the patient daughter who is at bedside. 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 It seems that yesterday she thought her defibrillator battery is running out after looking at her phone and noticing that her phone battery was going down but the daughter thinks she was mistaking it for defibrillator as a result patient became anxious confused. She canceled her infusion treatment for her rheumatoid arthritis as a result. Her episode of confusion yesterday was around 830 or 9:00 in the morning. No history of seizure. According to the daughter the patient has underlying vivid dreams for the past 8 years and she is having also word finding difficulty and she as stated earlier she followed up with neurologist for the first time about 3 weeks ago, Dr. Chambers and Zan evans and he prescribed Klonopin 0.5 mg half a tablet nightly but as stated earlier the daughter states that she is not compliant taking the medication. Her neurologist recommended an outpatient CT of the head. He wanted to assess how this medication helps first and has not given her an official diagnosis of dementia according to the daughter since she did not have full workup as well as stated earlier was seeing how this medication helped. As well as the patient is dealing with her who has cancer for the last 5 years and the patient was in tears talking about it. Does not have any history of stroke or TIA or seizure Some of the workup during this hospital visit consisted of: CBC with differential is unremarkable Ammonia is less than 9, vitamin B12 is 611, serum folate is 14.30 TSH is 2.010 Sodium, calcium, AST ALT and creatinine level are within normal limits. Next Urinalysis is negative for any acute urinary tract infection CT of the head is reported as no acute intracranial process. Nonspecific white matter changes, likely secondary due to chronic small vessel ischemic disease. I personally reviewed the CT and I agree there is no acute or subacute stroke. CT angiography of the head and neck is reported as no evidence of dissection of cervical internal carotid artery or vertebral artery or any evidence of significant stenosis at the carotid bifurcation. No evidence of high-grade stenosis or intracranial aneurysm. Review of Systems As per HPI. Past Medical History Past Medical History: Blood Disorder, Hypertension, Rheumatoid Arthritis (RA) Additional Past Medical History / Comment(s): DIFF HEARING RT&LT EAR/POLYPS/ Hx. EF =40. August 18 CLIENT EXECUTIVE-D defibrillator at [facility], 2015. IRON DEFICIENCY ANEMIA History of Any Multi-Drug Resistant Organisms: None Reported Past Surgical History: AICD, Joint Replacement, Pacemaker, Tonsillectomy, Tubal Ligation Additional Past Surgical History / Comment(s): L KNEE ARTHROSCOPY/COLONOSCOPY, 2017 [employer]. JANUARY 14 2017 TOTAL RT HIP REPLACEMENT Past Anesthesia/Blood Transfusion Reactions: No Reported Reaction Type of Cardiac Device: AICD Device Placement Date:: AUGUST 17 2016 Past Psychological History: No Psychological Hx Reported Smoking Status: Never smoker Medications and Allergies Home Medications Medication Instructions Recorded Confirmed Type Sacubitril/Valsartan [Entresto 24 1 tab PO BID 04/27/17 05/09/24 History mg-26 mg Tablet] Rivaroxaban [Xarelto] 20 mg PO W/SUPPER 03/13/19 05/09/24 History Sotalol [Betapace] 40 mg PO BID 03/13/19 05/09/24 History clonazePAM [KlonoPIN] 0.25 mg PO HS PRN 05/09/24 05/09/24 History Allergies Allergy/AdvReac Type Severity Reaction Status Date / Time codeine AdvReac Nausea & Verified 05/09/24 15:11 Vomiting Physical Examination - Vital Signs Vital Signs: Vital Signs Temp Pulse Resp BP Pulse Ox 05/10/24 15:05 97.8 F 63 18 142/60 97 05/10/24 12:32 62 15 05/10/24 11:30 61 16 05/10/24 09:25 97.8 F 60 17 122/66 05/10/24 06:00 66 17 115/62 05/10/24 02:00 60 17 112/51 05/09/24 22:00 60 17 135/72 05/09/24 18:00 60 20 139/68 96 05/09/24 17:17 62 22 152/79 96 General: Lying in bed and is not in acute distress. Neuro: Patient is awake alert oriented to self place and month. She got year incorrect she is able to name correctly the current state and the capital of [place] as well as the capital [facility]. Upon asking her about the current president I had to give her options then she correctly picked right current president. She is able to name the future president coming up in June 2024. She is following simple commands but at rare times she needs redirection. No aphasia no neglect The pupils are round equal reactive to light. The pupils are 4 mm bilaterally reactive to light. Visual fernandez are full to confrontation. Extraocular movements intact no nystagmus. Normal facial sensation to touch. No facial weakness. Tongue is midline moves [id number] without difficulty. No dysarthria. Hearing is mild to moderate decrease to hand rub bilaterally. Motor: Strength is 5/5 throughout. Normal tone and bulk Cerebellar normal [id number] Sensation is normal to touch Reflexes 2 positive throughout Plantars are mute bilaterally Results - Laboratory Findings CBC and BMP: 05/10/24 08:28 05/10/24 08:28 Abnormal Lab Findings: Abnormal Labs 05/09/24 05/10/24 13:20 08:28 Carbon Dioxide 31 H 33 H Glucose 116 H Assessment and Plan Assessment: This is a 78-year-old woman with underlying history of vivid dream and was recently diagnosed with REM behavior disorder, defibrillator since 2017, rheumatoid arthritis is on infusion we will also has word finding difficulty who presents because of a confusion. She was very anxious and confused and thought her defibrillator battery ran out when she looked at her phone and her battery of the phone was running out and seems that she probably mistaken. Episode of confusion: Possibly patient had episode anxiety/panic attack. Probable patient has underlying cognitive impairment/dementia and is being worked up by her outpatient neurologist REM behavior disorder History of atrial fibrillation on Xarelto Heart failure status post defibrillator in 2017 Hypertension Hypercholesteremia Rheumatoid Arthritis Medication noncompliance Plan: I ordered MRI and unable to complete MRI because of her defibrillator. Recommend outpatient MRI compatible for defibrillator. Recommend neuropsych evaluation as an outpatient I ordered RPR Routine EEG the preliminary is mild encephalopathy of nonspecific etiology. There is no focal slowing, epileptiform discharge or seizure on the EEG Patient was recommended to be compliant taking her Klonopin(0.25mg qhs) as instructed by her outpatient neurologist and will defer the escalation of dose to her outpatient neurologist, Dr. Chambers over [facility]. Consider antipsychotic or antidepressant and will defer that to her neurologist as outpatient. The daughter stated she will reach out to him regarding that. Will defer the rest of the medical management to primary other specialist Plan discussed with the patient, her daughter was at bedside as well as her . Otherwise no additional neurological workup. Time with Patient: Greater than 30
[2024-05-10 16:13] LABS: Basophils # (A) 0.05 X 10*3/uL (0.00-0.10); Eosinophils # (A) 0.02 X 10*3/uL (0.04-0.35); Eosinophils % (A) 0.4 %; HCT 36.6 % (37.2-46.3); HGB 12.1 g/dL (12.0-15.0); Lymphocytes # (A) 1.65 X 10*3/uL (0.90-5.00); Lymphocytes % (A) 31.7 %; MCH 31.5 pg (27.0-32.0); MCHC 33.1 g/dL (32.0-37.0); MCV 95.3 FL (80.0-97.0); Mean Platelet Volume 11.9 FL (9.5-12.2); Monocytes # (A) 0.48 X 10*3/uL (0.20-1.00); Monocytes % (A) 9.2 %; NRBC Per 100 WBC 0 X 10*3/uL (0.00-0.01); Neutrophils % (A) 57.5 %; Platelet Count 221 X 10*3/uL (140-440); RBC 3.84 X 10*6/uL (4.10-5.20); RDW 12.7 % (11.5-14.5); WBC 5.21 X 10*3/uL (4.50-10.00)
--- NOTE | 2024-05-10 21:37 | EEG ---
ELECTROENCEPHALOGRAM REPORT CLINICAL HISTORY: This is a 78-year-old woman with altered mental status. The video EEG is obtained to evaluate for seizure epileptiform activity. RELEVANT MEDICATION: Klonopin. EEG TYPE: This is a routine 21-channel EEG with video using the 10/20 electrode placement system. DESCRIPTION: Wakefulness is only obtained. During awake state, the posterior-dominant rhythm consists of [id number] voltage of 6.5 to 7 hertz activity that is well modulated and well sustained. There is no physiological stage 2 sleep architecture. There is no focal slowing. Interictal and ictal is none. ACTIVATION PROCEDURE: Photic stimulation and hyperventilation are not performed. CLINICAL INTERPRETATION: This is an abnormal routine EEG. The background slowing is suggestive of mild encephalopathy. Otherwise, there is no focal slowing, epileptiform discharge, or seizure on the EEG. Clinical correlation is recommended. TIM / LASHONDA: [id number] /
--- NOTE | 2024-05-11 07:38 | P.DS ---
Providers Date of admission: 05/09/24 15:22 Attending physician: Lenora Fontaine Consults: 05/09/24 15:19 Consult Physician Urgent Consulting Provider: Ismael Tinoco Consult Reason/Comments: acute encephalopathy Do you want consulting provider notified?: Yes Primary care physician: Cora Orourke [place] [facility] Course: Final Diagnosis -Confusion likely related to underlying dementia versus REM sleep cycle disorder patient has recently established with a neurologist on an outpatient basis and will be establishing with a neuropsychiatrist. -History of atrial fibrillation, paroxysmal anticoaguklated with Eliquis heart rate is controlled -History of systolic heart failure chronic with no acute exacerbation -AICD and history of nonischemic cardiomyopathy with improved EF now 50% per family. -Hypertension -Rheumatoid Arthritis Discharge Disposition Patient is stable for discharge home. Recommending to continue all same home medications. Patient to follow up with your family doctor as well as neurologist Dr. Chambers. Discussed with family at the bedside consider seroquel as sleep aid vs. Klonopin. Hospital Course This is a pleasant 78-year-old female with medical history significant for A- fib, heart failure, AICD. Patient came in with worsening confusion yesterday although per family patient has been having intermittent episodes confusion over the last few months seems to be worse in the morning. She is not having any focal weakness and at the time of my evaluation is currently alert and oriented x 3. Patient is a poor historian and most of the medical history is taken from patient's daughter Betsy over the phone. Patient was supposed to get remzia infusion yesterday called and cancelled the appointment in the morning during a bout of confusion. Was evaluated done at [facility] last week secondary to a beeping noise heard coming from her chest wall patient was found to need a generator change in her AICD and has been preoccupied with this since and worried that she will end up dying. She will be making an appoint with her professor of mathematics to have this changed. Patient has been established with neurologist Dr. Demond Chambers 3 weeks ago to work up for possible underlying dementia. Was diagnosed with a possible REM sleep Cycle disorder was to be taking Klonopin at at bedtime per family and patient she has not been taking it as prescribed. She has not been sleeping well and waking up with confusion in the morning. Patient was evaluated by neurology this admission brain CT and CT angiography showed no acute changes. Chest x-ray is unremarkable. Blood work is essentially unremarkable as well. Drug toxicology is negative urinalysis is negative electrolytes are within normal limits. Neurology has recommended EEG and if clear patient will be discharged home to follow-up with her neurologist on an outpatient basis. Plan was discussed with her family and they are agreeing to this. EEG was completed no evidence of epileptiform or seizure like activity. Patient was cleared by neurology she has been discharged home. Please see medication reconciliation for a list of current medications. Thank you for allowing us to participate in the care of this patient. The impression and plan of care has been dictated by Trinh Bates, Nurse Practitioner as directed. Dr. Kiesha MD I have performed a history and physical examination and medical decision making of this patient, discussed the same with the dictator, and agree with the dictators assessment and plan as written, documented as a scribe. Based on total visit time, I have performed more than 50% of this visit. Patient Condition at Discharge: Stable Plan - Discharge Summary New Discharge Prescriptions: No Action Sacubitril/Valsartan [Entresto 24 mg-26 mg Tablet] 1 tab PO BID Sotalol [Betapace] 40 mg PO BID Rivaroxaban [Xarelto] 20 mg PO W/SUPPER clonazePAM [KlonoPIN] 0.25 mg PO HS PRN PRN Reason: Insomnia Discharge Medication List Sacubitril/Valsartan [Entresto 24 mg-26 mg Tablet] 1 tab PO BID 04/27/17 [History] Rivaroxaban [Xarelto] 20 mg PO W/SUPPER 03/13/19 [History] Sotalol [Betapace] 40 mg PO BID 03/13/19 [History] clonazePAM [KlonoPIN] 0.25 mg PO HS PRN 05/09/24 [History] Follow up Appointment(s)/Referral(s): Cora Orourke MD [Primary Care Provider] - 1-2 days Demond Chambers MD [REFERRING] - 1 Week (Neurology ) Activity/Diet/Wound Care/Special Instructions: Follow up with your neurologist on discharge in 1 to 2 weeks Continue the klonopin as prescribed May consider low dose of seroquel like 12.5 mg at bedtime as an alternative; discuss with your neurologist and family doctor. Discharge Disposition: HOME SELF-CARE
== END 2024-05-10 15:05 | disposition home or self-care (01) | DRG 884 ==
LOC: EC 12:11 → 4SSUR 15:22
PROVIDERS: ADMIT Hospitalist; ATTEND Hospitalist
PROC: 4A10X4Z Monitoring of Central Nervous Electrical Activity, External Approach (ICD-10-PCS; principal; 2024-05-10)
DX: F03.918 Unspecified dementia, unspecified severity, with other behavioral disturbance (principal); I50.22 Chronic systolic (congestive) heart failure; I42.8 Other cardiomyopathies; D50.9 Iron deficiency anemia, unspecified; G47.52 REM sleep behavior disorder; I11.0 Hypertensive heart disease with heart failure; F41.0 Panic disorder [episodic paroxysmal anxiety]; E78.00 Pure hypercholesterolemia, unspecified; I48.0 Paroxysmal atrial fibrillation; M06.9 Rheumatoid arthritis, unspecified; Z79.01 Long term (current) use of anticoagulants; Z79.899 Other long term (current) drug therapy; Z91.148 Patient's other noncompliance with medication regimen for other reason; Z96.641 Presence of right artificial hip joint; Z95.810 Presence of automatic (implantable) cardiac defibrillator; Z88.5 Allergy status to narcotic agent; Z98.51 Tubal ligation status
CPT/HCPCS: 36415; 70450; 70496; 70498; 71046; 80048; 80053; 80306; 80320; 81003; 82140; 82607; 82746; 84443; 84484; 85025; 85610; 85730; 86780; 93005; 95816; 99285

== ENCOUNTER → 2024-12-27 | Outpatient (CLI) | payer MEDICARE ==
[2024-12-27 12:03] LABS: African American GFR (CKD) 43 (>60 ml/min/1.73 sqM); Blood Urea Nitrogen 35 mg/dL (7-17); Non-African American GFR(CKD) 37 (>60 ml/min/1.73 sqM)
--- NOTE | 2024-12-27 13:37 | CT ---
EXAMINATION TYPE: CT abdomen pelvis w con DATE OF EXAM: 12/27/2024 COMPARISON: None CLINICAL INDICATION: Female, 79 years old with history of R10.9, R63.4 WEIGHT LOSS; PHH, Abnormal jag ght loss. TECHNIQUE: Performed with Oral Contrast and with IV Contrast, patient injected with 80 ml mL of Isovue 300. CT DLP: 404.[address] CTDI: mGy Automated exposure control for dose reduction was used. FINDINGS: The lung bases are clear. The gallbladder is normal without distention, wall thickening, pericholecystic fluid or gallstones. T here is no biliary ductal dilatation. There is no focal mass or organomegaly involving the liver, pancreas, spleen or adrenal glands. There are 2 small adjacent cysts in the right lobe of the liver. There is no solid renal mass or hydronephrosis and there is homogeneous contrast enhancement of the r enal parenchyma. The caliber the abdominal aorta is normal is no retroperitoneal adenopathy or hemorr eunice. The bowel loops are normal in caliber and there is no evidence of dilatation or obstruction. No infla mmatory changes are identified in the bowel wall or mesentery. There is no free intraperitoneal air or fluid. No pelvic mass, free fluid, abscess or adenopathy. There is a right hip prosthesis. There is moderate degenerative disc disease at the L3-4 and L4-5 lev els.. IMPRESSION: No acute changes within the abdomen or pelvis. Incidental changes described above. [facility], , 12/27/2024 1:35 PM
== END | disposition home or self-care (01) ==
LOC: RADCTMAIN 11:21
PROVIDERS: ATTEND Family Medicine
DX: R10.9 Unspecified abdominal pain (principal); R63.4 Abnormal weight loss
CPT/HCPCS: 82565; 84520; 74177; 36415; Q9967